=== PATIENT | female | born 2000 | race Caucasian/White ===

== ENCOUNTER 2024-11-07 13:30 | Inpatient (IN) | payer OTHER ==
[2024-11-07] MEDS: ELECTROLYTE-148 SOLN 1,000 ML IV SCH (14:00)
[2024-11-07 14:59] LABS: INR 0.92 (0.83-1.09)
[2024-11-07 15:02] LABS: ACTIVATED PTT 25.5 SECONDS (25.2-36.5); CALCIUM 8.7 mg/dL (8.5-10.1)
[2024-11-07 15:03] LABS: BLOOD UREA NITROGEN 4.6 mg/dL (7-18)
[2024-11-07 15:06] LABS: CREATININE 0.5 mg/dL (0.55-1.3)
[2024-11-07 16:34] VITALS: BMI 41.8
[2024-11-07] MEDS: DINOPROSTONE 10 MG VAGINAL SUPPOSITORY VG ONE (17:35)
[2024-11-07 21:47] LABS: HEMATOCRIT 37.2 % (34.1-44.9); MCHC 32.3 g/dl (32.2-35.5); MEAN CELL VOLUME 86.1 fl (79.4-94.8); MEAN PLT VOLUME 13.7 fl (9.4-12.3); PLATELET COUNT 137 x10^3/uL (182-369); RDW 14.6 % (12.1-16.5)
[2024-11-08] MEDS ORDERED: BUTORPHANOL TARTRATE 2 MG/ML VIAL ONE (04:57)
[2024-11-08] MEDS ORDERED: PROMETHAZINE HCL 25 MG/1 ML VIAL ONE (04:57)
[2024-11-08] MEDS: PROMETHAZINE HCL 25 MG/1 ML VIAL IVPB ONE (05:07)
[2024-11-08] MEDS: BUTORPHANOL TARTRATE 2 MG/ML VIAL IVPUSH SCH (05:07)
[2024-11-08] MEDS: BUTORPHANOL TARTRATE 2 MG/ML VIAL IVPUSH ONE (06:10)
[2024-11-08] MEDS ORDERED: FENTANYL/BUPIVACAINE/NS/PF - PCEA - 50 ML DISP.SYRIN EP ONE ×2 (07:26→12:06)
[2024-11-08] MEDS ORDERED: NALOXONE HCL 0.4 MG/ML VIAL IVPUSH PRN (08:19)
[2024-11-08] MEDS: FENTANYL/BUPIVACAINE/NS/PF - PCEA - 50 ML DISP.SYRIN EP SCH (08:40)
[2024-11-08] MEDS ORDERED: OXYTOCIN 20 UNITS in 0.9% NS 20 UNIT/1,000 ML INFUS.BAG IV ONE ×2 (12:23→14:43)
[2024-11-08] MEDS ORDERED: METHYLERGONOVINE MALEATE 0.2 MG/1 ML AMP IM PRN (12:46)
[2024-11-08] MEDS ORDERED: BISACODYL 10 MG SUPP.RECT RC PRN (12:46)
[2024-11-08] MEDS ORDERED: ACETAMINOPHEN 325 MG TABLET (FP) PO PRN (12:46)
[2024-11-08] MEDS ORDERED: oxyCODONE HCL 5 MG TABLET PO PRN (12:46)
[2024-11-08 14:14] LABS: CORD BASE EXCESS -2.2 mmol/L (0-2); CORD HCO3 23.5 mmHg (20-29); CORD PCO2 43.7 mmHg (30-78); CORD pH 7.348 (7.14-7.44)
[2024-11-08] MEDS: SODIUM CHLORIDE 0.9% 1000 ML INFUS.BAG IVPB ONE (15:09)
[2024-11-08] MEDS: METHYLERGONOVINE MALEATE 0.2 MG/1 ML AMP IM ONE (15:09)
[2024-11-08] MEDS: OXYTOCIN 20 UNITS in 0.9% NS 20 UNIT/1,000 ML INFUS.BAG IV SCH (15:10)
[2024-11-08] MEDS: BENZOCAINE 20% 57 GM BOTTLE TP PRN (16:52)
[2024-11-08] MEDS: WITCH HAZEL 50% (TUCKS) 40 PAD/JAR PAD TP PRN (16:52)
[2024-11-08] MEDS: BENZOCAINE 28 GM HEMORRHOIDAL OINTMENT TP PRN (16:53)
[2024-11-08] MEDS: IBUPROFEN 600 MG TABLET (FP) PO PRN (20:49)
[2024-11-08] MEDS: SENNOSIDES/DOCUSATE COMBO (SENNA PLUS) TABLET (UD) PO PRN (20:50)
[2024-11-09 02:35] VITALS: RESP 18
[2024-11-09 06:51] LABS: ABSOLUTE IMMATURE GRANULOCYTES 0.05 x10^3/uL (0.0-0.031); BASOPHILS # 0.02 x10^3/uL (0.01-0.08); EOSINOPHIL % 0.7 % (0.7-5.8); EOSINOPHILS # 0.07 x10^3/uL (0.04-0.36); HEMATOCRIT 33.1 % (34.1-44.9); HEMOGLOBIN 10.5 g/dL (11.2-15.7); MCHC 31.7 g/dl (32.2-35.5); MEAN CELL VOLUME 86.6 fl (79.4-94.8); MEAN PLT VOLUME 13.5 fl (9.4-12.3); MONOCYTE # 0.63 x10^3/uL (0.24-0.86); MONOCYTE % 6.7 % (4.7-12.5); PLATELET COUNT 125 x10^3/uL (182-369); RDW 14.7 % (12.1-16.5)
[2024-11-10 09:16] VITALS: BP 110/60; PULSE 94; TEMP 97.7
== END 2024-11-10 11:32 | disposition home or self-care (01) | DRG 560 ==
LOC: JLDR 13:30 → J3W 11-08 14:50
PROVIDERS: ADMIT Obstetrics & Gynecology Obstetrics; ATTEND Obstetrics & Gynecology
PROC: 0HQ9XZZ Repair Perineum Skin, External Approach (ICD-10-PCS; principal; 2024-11-08)
PROC: 10E0XZZ Delivery of Products of Conception, External Approach (ICD-10-PCS; 2024-11-08)
DX: O41.03X0 Oligohydramnios, third trimester, not applicable or unspecified (principal); O70.0 First degree perineal laceration during delivery; Z3A.38 38 weeks gestation of pregnancy; Z37.0 Single live birth
CPT/HCPCS: 36415; 36600; 59409; 80048; 82803; 85025; 85610; 85730; 86780; 86850; 86900; 86901